=== PATIENT | female | born 1950 | race American Indian/Alaskan Native ===

== ENCOUNTER 2017-09-04 12:12 | Outpatient (CLI) | payer MEDICARE ==
--- NOTE | 2017-09-04 15:04 | Mammography Report ---
Bilateral digital screening mammogram with CAD. Comparison study is dated November 05, 2016. Findings: The breasts demonstrate a fibrofatty appearance and the overall pattern is stable. Small nodular asymmetries in the right breast are also stable with no suspicious renographic features. A few stable benign opacifications are seen on the right. Impression: Stable benign findings. BI-RADS code: 2. Recommendation: Annual screening.
== END 2017-09-04 12:13 | disposition home or self-care (01) ==
LOC: SPVWC 12:12
PROVIDERS: ATTEND Internal Medicine
DX: Z12.31 Encounter for screening mammogram for malignant neoplasm of breast (principal)
CPT/HCPCS: 77067; G0202

== ENCOUNTER 2018-04-27 09:30 | Day surgery (SDC) | payer MEDICARE ==
[~2018-04-27 09:30] MED LIST: NACL 0.9% 1000 ML 1,000 ML IV SCH
--- NOTE | 2018-04-27 10:16 | Short Stay Summary ---
Short Stay Documentation Date of service: 04/27/18 Narrative H&P: 67 year old with history of GERD and Pink's due for Pink's surveillance. Attempt at EGD 04/21/18 not successful due to presence of stenosis in cervical esophagus which could not be treated with available equipment in outpatient [facility] lab. She had previously denied esopahgeal symptoms. Today however she admits to rare mild dysphagia whenever when she eats too quickly. - History Principal diagnosis: cervical esophageal stenosis, GERD, Pink's H&P: obtained from office - Allergies and Medications Current Medications: Allergies amoxicillin [Amoxicillin] Allergy (Verified 03/16/15 12:03) Itching Home Medications Medication Instructions Recorded Confirmed Last Taken Type clonazePAM [KlonoPIN] 1 tab PO QHS 01/12/15 03/06/17 03/16/15 History FLUoxetine [PROzac] 20 mg PO BID 03/06/17 03/06/17 Unknown History Ibuprofen/Diphenhydramine Cit [Eql 1 tab PO QHS PRN 03/06/17 03/06/17 Unknown History Ibuprofen Pm Caplet] Simvastatin [Zocor TAB] 40 mg PO QHS 03/06/17 03/06/17 Unknown History Pantoprazole [Protonix] 40 mg PO QDAY #30 tablet 03/07/17 Unknown Rx Active Medications Sodium Chloride (Nacl 0.9% 1000 Ml) 1,000 mls @ 50 mls/hr IV DIRECT DARA - Hospital course Hospital course: Uneventful EGD with biopsy. - Disposition Condition at discharge: Good Disposition: DC-01 TO HOME OR SELFCARE - Discharge Diagnoses (1) Disorder of cervical esophageal region Status: Acute (2) Pink's esophagus Status: Acute (3) GERD (gastroesophageal reflux disease) Status: Acute (4) Hiatal hernia Status: Chronic Short Stay Discharge Plan Follow up with: MIRACLE WHITMAN MD [Primary Care Provider] - 7 Days
--- NOTE | 2018-04-27 10:29 | Anesthesia Day of Surgery ---
Anesthesia Day of Surgery - Day of Surgery Patient Examined: Yes Patient H&P Reviewed: Yes Patient is NPO: Yes
--- NOTE | 2018-04-27 10:29 | Anesthesia Consultation ---
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
[2018-04-27] MEDS ORDERED: DIPRIVAN 10 MG/ML IV ONE (11:15)
[2018-04-27] MEDS ORDERED: XYLOCAINE MPF 2% ONE (11:30)
[2018-04-27] MEDS ORDERED: WATER FOR IRRIG STERILE IR ONE (11:36)
--- NOTE | 2018-04-27 11:48 | Operative Report ---
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 However , a cervical esophageal stenosis was encountered precluding passage of our upper endoscope. Small caliber dilators were not available and the procedure was therefore rescheduled at this facility. At the previous exam, she denied symptoms of dysphagia, however today admits to mild dysphagia to solids whenever she tries to eat too much too fast. The indications, techniques, potential complications and alternative methods of diagnosis and treatment had been discussed with her in detail prior to the date of this exam and once again on the day of this exam. Her questions were encouraged answered and she granted consent for esophagogastroduodenoscopy with dilation. She was placed in the left lateral decubitus position and was medicated by anesthesia services. The tip of a [employer] video panendoscope was gently and slowly passed through the pharynx and into the proximal esophagus. The cervical web was noted, but the instrument (presumably having a slightly smaller caliber than our center's instrument) passed with no significant pressure. Distal to the web, the esophagus appeared essentially normal. There was perhaps a 1 or 2 mm proximal migration of the squamocolumnar junction but no obvious Pink's of greater than 1 cm. There was no visible inflammation. A small hiatal hernia was traversed as the instrument was advanced into the stomach. Once in the stomach, air was insufflated. The stomach distended well , gastric folds were normal in thickness and contour, the gastric mucosa was intact throughout, the pylorus was patent and there was no retained gastric content. No pathology was seen in the duodenal bulb or in the post bulbar duodenum to below the level of the ampulla. Retroflexion in the stomach disclosed no pathology involving the lesser curvature, or fundus. The anatomic defect associated with the hiatal hernia was noted in the cardia. The insitrument was straightened and repositioned in the distal esophagus. Biopsies were obtained from the esophagogastric junction in the area of suspected Pink's. No significant bleeding was precipitated. The endoscope was then slowly withdrawn with repeat examination of the stomach, esophagogastric junction and esophagus. Noted in the cervical esophagus was the persistent web, which appeared to have been disrupted with a scant trace of blood present but no active bleeding. It was elected not to dilate further in view of the paucity of symptoms. She was then monitored in the recovery area of the GI lab to ensure stability prior to her release. See the outpatient record for details regarding instructions to patient, medications and plans for follow-up. Endoscopic assessment: 1. Cervical esophageal web, traversed with current panendoscope which had a slightly dilating effect on the web. 2. Hiatal hernia. 3. Pink's disease by history, gross appearance is not suggestive of Pink' s, biopsies obtained for dysplasia screening. Xu Zacarias M.D. Dictated 04/27/2018 at 11:39 AM
[2018-04-27 12:45] VITALS: BP 137/77
== END 2018-04-27 09:31 | disposition home or self-care (01) ==
LOC: GIO 09:30
PROVIDERS: ATTEND Internal Medicine Gastroenterology
DX: K22.2 Esophageal obstruction (principal); K29.50 Unspecified chronic gastritis without bleeding; K21.9 Gastro-esophageal reflux disease without esophagitis; K22.70 Barrett's esophagus without dysplasia; K44.9 Diaphragmatic hernia without obstruction or gangrene; M19.90 Unspecified osteoarthritis, unspecified site; E78.5 Hyperlipidemia, unspecified; F41.9 Anxiety disorder, unspecified; F32.9 Major depressive disorder, single episode, unspecified; Z86.010 Personal history of colon polyps; Z88.1 Allergy status to other antibiotic agents
CPT/HCPCS: 43239; 88305; 88312; J2704; J7030

== ENCOUNTER 2019-09-08 10:45 | Outpatient (CLI) | payer MEDICARE ==
--- NOTE | 2019-09-09 13:21 | Mammography Report ---
DIGITAL SCREENING MAMMOGRAM WITH CAD, 09/08/2019 INDICATION: Routine screening mammography. TECHNIQUE: Digital bilateral 2D mammography was obtained in the craniocaudal and mediolateral obliq ue projections. This examination was interpreted with the benefit of Computer-Aided Detection analysi s. COMPARISON: 09/07/2018 FINDINGS: Breast Density: There are scattered areas of fibroglandular density. There is no evidence of dominant mass, suspicious calcifications or architectural distortion in eithe r breast. Circumscribed densities and calcifications of the right breast are unchanged. IMPRESSION: No mammographic evidence of malignancy. Follow up recommendation: Routine yearly BI-RADS Category 2: Benign. A "normal" or negative report should not discourage follow up or biopsy of a clinically significant f inding. A written summary of these findings will be mailed to the patient. The patient will be entered into a mammography reporting system which will generate a reminder letter for the patient's next appointmen t at the appropriate interval. The [employer] recommends yearly mammograms starting at age 40 and continuing as l marcus as a woman is in good health. Breast MRI is recommended for women with an approximate 20-25% or greater lifetime risk of breast cancer, including women with a strong family history of breast or ova enrique cancer or who have been treated for Hodgkin's disease. Signer Name: Dinesh Casillas MD Signed: 09/09/2019 1:17 PM Workstation Name: [id number]
== END 2019-09-08 10:46 | disposition home or self-care (01) ==
LOC: SPVWC 10:45
PROVIDERS: ATTEND Internal Medicine
DX: Z12.31 Encounter for screening mammogram for malignant neoplasm of breast (principal); E78.5 Hyperlipidemia, unspecified; I10 Essential (primary) hypertension; K21.9 Gastro-esophageal reflux disease without esophagitis; Z88.1 Allergy status to other antibiotic agents
CPT/HCPCS: 77067

== ENCOUNTER 2020-07-26 13:40 | Emergency (ER) | payer MEDICARE ==
--- NOTE | 2020-07-26 14:10 | Emergency Department Report ---
Blank Doc - Documentation Documentation: 69-year-old female that presents with abdominal pain with bright red rectal bl eeding. This initial assessment/diagnostic orders/clinical plan/treatment(s) is/are subject to change based on patient's health status, clinical progression and re- assessment by fellow clinical providers in the ED. Further treatment and workup at subsequent clinical providers discretion. Patient/guardians urged not to elope from the ED as their condition may be serious if not clinically assessed and managed. Initial orders include: 1- Patient sent to MAIN ED for further evaluation and treatment 2- labs 3- UA
[2020-07-26 14:11] VITALS: BP 131/74
[2020-07-26 15:24] LABS: Basophils # (Auto) 0.1 K/mm3 (0.0-0.1); Eosinophils # (Auto) 0.3 K/mm3 (0.0-0.4); Eosinophils % (Auto) 5.3 % (0.0-4.3); Hematocrit 42.7 % (30.3-42.9); Hemoglobin 14.1 gm/dl (10.1-14.3); Lymphocytes # (Auto) 2.3 K/mm3 (1.2-5.4); Lymphocytes % (Auto) 39.9 % (13.4-35.0); Mean Corpuscular HGB Conc 33 % (30-34); Mean Corpuscular Volume 86 fl (79-97); Monocytes # (Auto) 0.9 K/mm3 (0.0-0.8); Monocytes % (Auto) 15.7 % (0.0-7.3); Platelet Count 264 K/mm3 (140-440); Red Blood Count 4.99 M/mm3 (3.65-5.03); Red Cell Distribution Width 15.2 % (13.2-15.2)
[2020-07-26 15:33] LABS: Partial Thromboplastin Time 25.8 Sec. (24.2-36.6)
[2020-07-26 15:49] LABS: Alanine Aminotransferase 16 units/L (7-56); Albumin 4.3 g/dL (3.9-5); BUN/Creatinine Ratio 13; Blood Urea Nitrogen 10 mg/dL (7-17); Calcium 10.2 mg/dL (8.4-10.2); Hemolysis Index 10
== END 2020-07-26 17:27 | disposition left against medical advice (07) ==
LOC: ED 13:40
DX: K62.5 Hemorrhage of anus and rectum (principal); R50.9 Fever, unspecified; Z53.21 Procedure and treatment not carried out due to patient leaving prior to being seen by health care provider
CPT/HCPCS: 36415; 80053; 83690; 85025; 85610; 85730

== ENCOUNTER 2020-09-12 10:30 | Outpatient (CLI) | payer MEDICARE ==
--- NOTE | 2020-09-12 16:27 | Mammography Report ---
DIGITAL SCREENING MAMMOGRAM WITH CAD, 09/12/2020 CLINICAL INFORMATION / INDICATION: Routine screening mammography. TECHNIQUE: Digital bilateral 2D mammography was obtained in the craniocaudal and mediolateral obliqu e projections. This examination was interpreted with the benefit of Computer-Aided Detection analysis . COMPARISON: 09/08/2019, 09/07/2018 FINDINGS: Breast Density: There are scattered areas of fibroglandular density. No dominant mass, suspicious calcifications, or architectural distortion in either breast. Benign right breast nodular densities and calcifications are unchanged. IMPRESSION: No mammographic evidence of malignancy. No significant interval changes. Follow up recommendation: Routine yearly BI-RADS Category 2: Benign. A "normal" or negative report should not discourage follow up or biopsy of a clinically significant f inding. A written summary of these findings will be mailed to the patient. The patient will be entered into a mammography reporting system which will generate a reminder letter for the patient's next appointmen t at the appropriate interval. The [employer] recommends yearly mammograms starting at age 40 and continuing as l marcus as a woman is in good health. Breast MRI is recommended for women with an approximate 20-25% or greater lifetime risk of breast cancer, including women with a strong family history of breast or ova enrique cancer or who have been treated for Hodgkin's disease. Signer Name: Gonzalo Thomas MD Signed: 09/12/2020 4:23 PM Workstation Name: [id number]
== END 2020-09-12 10:31 | disposition home or self-care (01) ==
LOC: SPVWC 10:30
PROVIDERS: ATTEND Internal Medicine
DX: Z12.31 Encounter for screening mammogram for malignant neoplasm of breast (principal)
CPT/HCPCS: 77067

== ENCOUNTER 2021-09-13 08:57 | Outpatient (CLI) | payer MEDICARE ==
--- NOTE | 2021-09-13 15:45 | Mammography Report ---
DIGITAL SCREENING MAMMOGRAM WITH CAD, 09/13/2021 CLINICAL INFORMATION / INDICATION: Routine screening mammography. SCREENING MAMMO Z12.31 TECHNIQUE: Digital bilateral 2D mammography was obtained in the craniocaudal and mediolateral obliqu e projections. This examination was interpreted with the benefit of Computer-Aided Detection analysis . COMPARISON: 10/09/2020 FINDINGS: Breast Density: There are scattered areas of fibroglandular density. No dominant mass, suspicious calcifications, or architectural distortion in either breast. There are stable nodules on the right. There are stable calcifications on the right. IMPRESSION: No mammographic evidence of malignancy. Follow up recommendation: Routine yearly BI-RADS Category 2: Benign. A "normal" or negative report should not discourage follow up or biopsy of a clinically significant f inding. A written summary of these findings will be mailed to the patient. The patient will be entered into a mammography reporting system which will generate a reminder letter for the patient's next appointmen t at the appropriate interval. The [employer] recommends yearly mammograms starting at age 40 and continuing as l marcus as a woman is in good health. Breast MRI is recommended for women with an approximate 20-25% or greater lifetime risk of breast cancer, including women with a strong family history of breast or ova enrique cancer or who have been treated for Hodgkin's disease. Signer Name: Yann Peck MD Signed: 09/13/2021 3:40 PM Workstation Name: [id number]
== END 2021-09-13 08:58 | disposition home or self-care (01) ==
LOC: SPVWC 08:57
PROVIDERS: ATTEND Internal Medicine
DX: Z12.31 Encounter for screening mammogram for malignant neoplasm of breast (principal); N63.10 Unspecified lump in the right breast, unspecified quadrant; N64.89 Other specified disorders of breast
CPT/HCPCS: 77067